=== PATIENT | female | born 1970 | race Caucasian/White ===

== ENCOUNTER 2017-03-08 10:43 | Day surgery (SDC) | payer MEDICAID ==
[~2017-03-08] VITALS: Ht 160 cm; Wt 68.0 kg
[2017-03-08] MEDS ORDERED: CEFAZOLIN SOD 2 GM in D5W 50 ML IV ONE (11:15)
[2017-03-08] MEDS ORDERED: PROPOFOL 200MG/ 20ML VIAL (DIPRIVAN) IV ONE (11:56)
[2017-03-08] MEDS ORDERED: MIDAZOLAM HCL 5 MG/5 ML VIAL IVP ONE (11:56)
[2017-03-08] MEDS ORDERED: KETOROLAC TROMETHAMINE 30 MG VIAL IVP ONE (11:56)
[2017-03-08] MEDS ORDERED: DEXAMETHASONE SOD PHOSPHATE 4 MG/ML VIAL IVP ONE (11:56)
[2017-03-08] MEDS ORDERED: fentaNYL CITRATE/PF 100 MCG/2 ML AMP IVP ONE (11:56)
[2017-03-08] MEDS ORDERED: METOCLOPRAMIDE HCL 10 MG/2 ML VIAL IVP ONE (11:56)
[2017-03-08] MEDS ORDERED: LR 1,000 ML IV.SOLN IV ONE (11:56)
[2017-03-08] MEDS ORDERED: SEVOFLURANE 15 MIN GAS INH ONE (11:56)
[2017-03-08] MEDS ORDERED: NS IRRIG SOLN 1000 ML IR ONE (11:56)
[2017-03-08] MEDS ORDERED: ONDANSETRON HCL 4 MG/2 ML VIAL IVP PRN ×3 (12:30→13:00)
[2017-03-08] MEDS ORDERED: ACETAMINOPHEN/CODEINE 300 MG-30 MG TABLET PO PRN (12:30)
[2017-03-08] MEDS ORDERED: IBUPROFEN 800 MG TABLET PO PRN (12:30)
[2017-03-08] MEDS ORDERED: MORPHINE 4 MG/ML INJ. SYRINGE IVP PRN (12:30)
[2017-03-08] MEDS ORDERED: LR 1,000 ML IV ONE (12:48)
[2017-03-08] MEDS ORDERED: DIPHENHYDRAMINE INJ 50 MG/ML VIAL IVP PRN (13:00)
[2017-03-08] MEDS ORDERED: ePHEDrine sulfate 50 MG/ML VIAL IVP PRN (13:00)
[2017-03-08] MEDS ORDERED: NALBUPHINE HCL 10 MG/ML AMP IVP PRN (13:00)
[2017-03-08] MEDS ORDERED: fentaNYL CITRATE/PF 100 MCG/2 ML AMP IVP PRN (13:00)
[2017-03-08] MEDS ORDERED: NALOXONE HCL 0.4 MG/ML AMP (NARCAN) IVP PRN (13:00)
[2017-03-08 14:20] VITALS: BP_SYST 126
[2017-03-08 14:33] VITALS: BP_SYST 126
[2017-03-08 20:26] VITALS: BP_SYST 108
[2017-03-08 23:41] VITALS: BP_SYST 116
[2017-03-09 03:21] VITALS: BP_SYST 115
[2017-03-09 08:00] VITALS: BP_SYST 173
[2017-03-09 08:30] VITALS: BP_SYST 113
== END 2017-03-09 09:15 | disposition home or self-care (01) ==
LOC: SOR 10:43 → EDSTATUS 12:30 → SMU 15:37 → SOR 03-09 09:15
PROVIDERS: ATTEND Obstetrics & Gynecology
DX: N81.10 Cystocele, unspecified (principal); N81.6 Rectocele; N39.3 Stress incontinence (female) (male); Z82.49 Family history of ischemic heart disease and other diseases of the circulatory system; Z83.3 Family history of diabetes mellitus; Z90.49 Acquired absence of other specified parts of digestive tract
CPT/HCPCS: 36415; 57220; 57260; 86886; 86900; 86901; 87081; J0690; J1100; J1885; J2250; J2704; J2765; J3010; J7060; J7120